=== PATIENT | female | born 2000 | race Caucasian/White ===

== ENCOUNTER 2020-10-17 04:46 | Emergency (ER) | payer OTHER ==
[2020-10-17 04:57] VITALS: BP 109/68; PULSE 111; RESP 24; TEMP 99
[2020-10-17] MEDS: LIDOCAINE 1% INJ 10MG/ML (20 ML MDV) SQ ONE (05:19)
[2020-10-17] MEDS: ACETAMINOPHEN TAB 325 MG TAB PO STA (05:20)
[2020-10-17] MEDS: SULFAMETHOX-TMP 800-160MG 1 EACH TAB PO STA (05:20)
[2020-10-17] MEDS: IBUPROFEN 600 MG TAB PO STA (05:20)
--- NOTE | 2020-10-17 05:22 | ED ---
Skin/Abscess/FB HPI - General Chief complaint: Skin/Abscess/Foreign Body Stated complaint: ingrown hair Time Seen by Provider: 10/17/20 05:00 Source: patient Mode of arrival: ambulatory Limitations: no limitations - History of Present Illness Initial comments: This patient is a 20-year-old woman who complains of having a "ingrown hair" to the proximal right thigh. She states that it had started as a small red papular area about 3 days ago. The patient was applying warm compresses, then over the course the past day she noticed that it was becoming larger, red and tender. No systemic symptoms. MD complaint: abscess/boil Onset/Timin -: days(s) Tetanus Up to Date: yes Location: [facility] Severity: moderate Quality: dull Consistency: constant Improves with: none Worsens with: none Context: none Associated symptoms: denies other symptoms Treatments Prior to Arrival: attempted to drain pus at home - Related Data Previous Rx's Medication Instructions Recorded Acetaminophen-Codeine 300-30mg 1 tab PO Q4H PRN #15 tablet 10/17/20 [Tylenol w/codeine #3] Sulfamethox-Tmp 800-160Mg [Bactrim 1 each PO Q12HR #6 tab 10/17/20 Ds] Allergies Allergy/AdvReac Type Severity Reaction Status Date / Time amoxicillin [From Augmentin] Allergy Rash/Hives Verified 10/17/20 04:57 clavulanic acid Allergy Rash/Hives Verified 10/17/20 04:57 [From Augmentin] Review of Systems ROS Statement: Those systems with pertinent positive or pertinent negative responses have been documented in the HPI. ROS Other: All systems not noted in ROS Statement are negative. Constitutional: Denies: fever, chills Respiratory: Denies: cough, dyspnea Cardiovascular: Denies: chest pain, palpitations Skin: Reports: as per HPI Neurological: Denies: weakness, numbness, paresthesias Hematological/Lymphatic: Denies: easy bleeding Past Medical History Past Medical History: GERD/Reflux Additional Past Medical History / Comment(s): abscess, ADHD, narcolepsy History of Any Multi-Drug Resistant Organisms: None Reported Past Surgical History: Appendectomy, Orthopedic Surgery, Tonsillectomy Past Psychological History: ADD/ADHD, Anxiety, Depression Smoking Status: Current some day smoker Past Alcohol Use History: Occasional Past Drug Use History: Marijuana General Exam Limitations: no limitations General appearance: alert, in no apparent distress Head exam: Present: atraumatic, normocephalic Respiratory exam: Present: normal lung sounds bilaterally. Absent: respiratory distress, wheezes, rales, rhonchi, stridor Cardiovascular Exam: Present: regular rate, normal rhythm, normal heart sounds. Absent: systolic murmur, diastolic murmur, rubs, gallop Skin exam: Present: warm, dry, intact, erythema, other (Patient has area of erythema and induration to the right proximal thigh. No obvious fluctuant area. There is a central papule.) Course Vital Signs 10/17/20 04:51 Temperature 99 F Pulse Rate 111 H Respiratory 24 Rate Blood Pressure 109/68 O2 Sat by Pulse 100 Oximetry Procedures - Incision & Drainage Consent Obtained: verbal consent Site: lower extremity Anesthetic Used: lidocaine 1% I&D Cleaning Method: Chloroprep Sterile Field Used?: Yes Scalpel Used: #11 I&D Drainage Obtained: Pus, Blood Packing: Iodoform Patient Tolerated Procedure: well, no complications Disposition Clinical Impression: Abscess Disposition: HOME SELF-CARE Condition: Good Instructions (If sedation given, give patient instructions): Abscess (ED) Prescriptions: Sulfamethox-Tmp 800-160Mg [Bactrim Ds] 1 each PO Q12HR #6 tab Acetaminophen-Codeine 300-30mg [Tylenol w/codeine #3] 1 tab PO Q4H PRN #15 tablet PRN Reason: Pain Is patient prescribed a controlled substance at d/c from ED?: Yes When asked, does pt state using other controlled substances?: No If prescribed controlled substance>3 days was MAPS reviewed?: Prescribed <3 Days If opioid is for acute pain is fill amount 7 days or less?: Yes If Rx opioid, was Start Talking consent form obtained?: Yes Referrals: Nonstaff,Physician [Primary Care Provider] - 1-2 days
== END 2020-10-17 05:55 | disposition home or self-care (01) ==
LOC: EC 04:46
DX: L02.415 Cutaneous abscess of right lower limb (principal); F17.200 Nicotine dependence, unspecified, uncomplicated; Z88.0 Allergy status to penicillin; Z88.1 Allergy status to other antibiotic agents; Z90.49 Acquired absence of other specified parts of digestive tract
CPT/HCPCS: 99283; 10060; J2001